=== PATIENT | male | born 1950 | race Caucasian/White ===

== ENCOUNTER 2020-08-04 17:41 | Outpatient (REF) | payer OTHER, SELFPAY ==
[2020-08-04 14:15] LABS: Anion Gap 8.3 mmol/L (3-11); BUN 16 mg/dL (7-18); CO2 29.7 mmol/L (21.0-32.0); CREATININE 0.9 mg/dL (0.70-1.30); Calcium 9.2 mg/dL (8.5-10.1); Calculated LDL 100 mg/dL (<100); Chloride 102 mmol/L (98-107); Cholesterol 179 mg/dL (<200); Glucose 106 mg/dL (74-106); HDL Cholesterol 46 mg/dL (40-60); Potassium 4.5 mmol/L (3.5-5.1); Sodium 140 mmol/L (136-145); Triglyceride 166 mg/dL (<150)
[2020-08-04 21:34] LABS: PSA, Screening 0.3 ng/mL (0.0-4.5)
== END 2020-08-04 17:42 | disposition home or self-care (01) ==
LOC: LBN 17:41
PROVIDERS: PCP Internal Medicine; Visit Provider Internal Medicine
DX: I10 Essential (primary) hypertension (principal); E78.5 Hyperlipidemia, unspecified; Z12.5 Encounter for screening for malignant neoplasm of prostate
CPT/HCPCS: 80048; 80061; 84153

== ENCOUNTER 2020-09-29 10:15 | Outpatient (REF) | payer OTHER, SELFPAY ==
[2020-10-02 10:29] LABS: Lyme Ab w Rflx to Lyme Confirm Negative (Negative)
[2020-10-03 18:41] LABS: Anaplasma phagocytophilum Negative (Negative); B. miyamotoi PCR Negative (Negative); Babesia divergens/MO-1 Negative (Negative); Babesia duncani Negative (Negative); Babesia microti Negative (Negative); Ehrlichia chaffeensis Negative (Negative); Ehrlichia ewingii/canis Negative (Negative); Ehrlichia muris eauclairensis Negative (Negative)
== END 2020-09-29 10:16 | disposition home or self-care (01) ==
LOC: NCHCN 10:15
PROVIDERS: PCP Internal Medicine; Visit Provider Internal Medicine
DX: M25.50 Pain in unspecified joint (principal)
CPT/HCPCS: 87798; 86618

== ENCOUNTER → 2021-03-01 10:42 | Outpatient (BNVA) | payer MEDICARE, SELFPAY | PROVIDERS: PCP Internal Medicine; Referring Provider Internal Medicine; Visit Provider Physical Therapy Assistant | DX: Z12.11 Encounter for screening for malignant neoplasm of colon (principal); Z80.0 Family history of malignant neoplasm of digestive organs ==

== ENCOUNTER 2021-03-02 01:00 | Outpatient (CLI) | payer MEDICARE, SELFPAY ==
[2021-03-02 11:04] LABS: Source Nasal/Nares
[2021-03-02 22:07] LABS: COVID-19 PCR Negative (Negative)
== END 2021-03-02 01:01 | disposition home or self-care (01) ==
LOC: LBO 01:00
PROVIDERS: PCP Internal Medicine; Visit Provider Surgery
DX: Z20.822 Contact with and (suspected) exposure to COVID-19 (principal); Z01.818 Encounter for other preprocedural examination
CPT/HCPCS: 87635

== ENCOUNTER 2021-03-05 10:31 | Day surgery (SDC) | payer MEDICARE, SELFPAY ==
--- NOTE | 2021-03-05 06:40 | W.ANESPRE ---
General Info Date of Service Date Performed: 03/05/21 Height: 5 ft 10 in Weight: 101.151 kg Body Mass Index (BMI): 32.0 Surgical Procedure: Operation Date: 03/05/21 11:20 Proposed Procedures Side Surgeon p Colonoscopy Isabel Cedeño MD Meds Allergies and Home Medications Allergies Allergy/AdvReac Type Severity Reaction Status Date / Time No Known Allergies Allergy Verified 03/05/21 10:58 Home Medication Medication Instructions Recorded acetaminophen 650 mg 650 mg PO Q12H 10/13/20 tablet,extended release lisinopril 20 mg tablet 20 mg PO DAILY 10/13/20 sildenafil 100 mg tablet 100 mg PO DAILY PRN 10/13/20 sumatriptan succinate 50 mg tablet 50 mg PO ONCE 10/13/20 bisacodyl 5 mg tablet,delayed 5 mg PO ONCE #4 tab 03/01/21 release polyethylene glycol 3350 17 17 g PO ONCE #238 g 03/01/21 gram/dose oral powder Devil's Claw 03/02/21 Tumeric With Black Pepper 03/02/21 Current Visit Medications: Current Medications Generic Name Dose Route Start Last Admin Trade Name Symone PRN Reason Stop Dose Admin Ringer's Solution 1,000 mls @ 80 mls/hr 03/05/21 06:00 IV 04/01/21 23:59 INFUSION LEONARD IV Miscellaneous Supplies 1 each 03/05/21 06:00 Iv Access IV 04/01/21 23:59 DIRECTED LEONARD Sodium Chloride 0 ml 03/05/21 06:00 Normal Saline Flush 10 Ml Syr IV 04/01/21 23:59 PRN PRN Sodium Chloride 0 ml 03/05/21 06:00 Normal Saline 10 Ml Vial IJ 04/01/21 23:59 DIRECTED PRN Sterile Water 0 ml 03/05/21 06:00 Water,Injection,Sterile 10 Ml Vial IJ 04/01/21 23:59 DIRECTED PRN PFSH Active Problems Active Problems: Problem Status Onset Code Screening for colon cancer Z12.11 Medical History Medical History Arthritis Bilateral knee pain Caregiver stress Erectile dysfunction Hyperlipidemia Hypertension Lactose intolerance Migraine Obesity Smoker Vitiligo Medical History Comments:: Pt. states If I get over done, I have had arrythmias Surgical History Surgical History (Updated 03/05/21 @ 11:06 by Isa Aldridge) History of carpal tunnel release bilateral History of tonsillectomy and adenoidectomy pt. reports his palate and uvula were modified for sleep apnea History of uvulectomy Hx of cholecystectomy Hx of colonoscopy Tobacco Smoking/Tobacco Use Status: Former Tobacco Use Alcohol Alcohol Intake: current Alcohol intake frequency: 0-2 drinks per day Alcohol type: wine and hard liquor Substance Use Substance use: Daily Substance use type: marijuana Details: He consumes 2mL of THC butter nightly for sleep and uses THC salve topically for joint pain. He smokes CBD hemp daily. Vital Signs and Lab Results Vital Signs Most Recent Vital Signs in EMR: Temp Pulse Resp BP Pulse Ox 36.7 C 78 18 133/82 97 03/05/21 10:54 03/05/21 10:54 03/05/21 10:54 03/05/21 10:54 03/05/21 10:54 Lab Results Blood Type / Crossmatch: No Data to Display Complete Blood Count: No Data to Display Complete Metabolic Panel: No Data to Display Liver Function Panel: No Data to Display Coagulation Panel: No Data to Display Cardiac Panel: No Data to Display Arterial Blood Gas: No Data to Display Venous Blood Gas: No Data to Display Pancreas Panel: No Data to Display Thyroid Panel: No Data to Display Infectious Disease: Coronavirus (COVID-19)(PCR) Negative (Negative) 03/02/21 10:17 03/02/21 Coronavirus 2019 Source Nasal/Nares 03/02/21 10:17 03/02/21 Blood Cultures: No Data to Display Toxicology Panel: No Data to Display Anesthesia Assessment and Plan Anesthesia History Personal History: Other Family History: No Family History of Anesthesia Complications Exercise Tolerance Exercise Tolerance: Metabolic Equivalents<4 Cardiac & Pulmonary Exam Cardiac Exam: Normal S1/S2 Heart Sounds Pulmonary Exam: Clear Bilateral Breath Sounds Implantable Cardiac Device Does patient have a Pacemaker or an ICD?: No Airway Exam Known Difficult Airway: No Mallampati Class: 2 Mouth Opening: Normal (> 3cm) Thyromental Distance: Greater than 3 cm Neck Range of Motion: Full ROM Neck Circumference: Normal Teeth Condition: Removable Dentures/Plates Lower ASA Classification ASA Score: ASA 2 Emergency Case?: No NPO Status NPO Status: NPO Clears >2 hours, Solids >8 hours Anesthesia Plan Resuscitation Status: Full Code Anesthesia Technique: General Anesthesia Airway Planned: Natural Airway Monitors Used: Standard Monitors and Arterial Line Preoperative Comments:: 70 yo male for screening colo. sig PMHx: HTN (lisinopril).
--- NOTE | 2021-03-05 06:47 | COLE_ITS ---
Colonoscopy Report Date of procedure: 03/05/21 Pre-op diagnosis general: Screening colonoscopy and family history of colon canc er Post-op diagnosis procedure note: same Procedure: Colonoscopy Surgeon: Isabel Cedeño Anesthesia Type: General:No Airway (Bo José CRNA) Estimated blood loss (mL): 0 Pathology: none sent Complications: None Disposition: same day Indications: The patient is here for Colonoscopy pre-op. His last screening was in 2009, which was unremarkable. He reports a family history of colon cancer in his mother at the age of 34 and his maternal uncle at the age of 76. He has not had any bowel habit changes. -Discussed colonoscopy bowel prep as well as the procedure. Discussed possible complications of the procedure to include bleeding, pain, perforation, missed small lesion/polyp, sore throat, aspiration and adverse reaction to the medications. Questions were answered to patient?s satisfaction. No guarantees were implied or given. Prep: Miralax/Dulcolax Procedure Start Time: 12:03 Procedure End Time: 12:43 Retraction Time: 26 minutes Findings: No polyps seen but prep was suboptimal !.5 Lof saline used to try and wash all the debris out of the intestine Procedure Description: After informed consent was obtained the patient was taken to the procedure room and placed in a left decubitous position. Monitors were applied and a time out was done. The patients name, date of , procedure, allergies to medications and metal in their body was reviewed. The patient was then sedated. Once sedated and comfortable a rectal exam was done. External exam was normal. Internal exam revealed a normal sphincter tone and no palpable masses. The prostate felt smooth and slightly enlarged. The scope was then introduced and retro-flexed. No internal hemorrhoids, polyps or masses were identified on retro-flexion. The scope was then advanced to the cecum without difficulty. The ileocecal vlave and appendiceal orifice were identified. The prep was sub-optimal. The scope was then slowly retracted over 26 minutes back into the rectum. 1.5 L of NS were used to try and remove as much debris from the mucosa. No polyps were identified. There was no diverticulosis noted. The scope was removed and the patient was woken up and taken back to Same day surgery in stable condition. Small polyps could easily have been missed due to the sub-optimal prep. The patient tolerated the procedure well and there were no immediate complications. Follow up: The patient should follow up in 1 year unless they develop changes in bowel habits or other new gastrointestinal complaints.
--- NOTE | 2021-03-05 06:48 | W.PM.DSUDISC ---
Discharge Plan Disposition Patient Disposition: HOME Condition: Good Discharge Details Reason For Visit: Colonoscopy Attending Provider: Isabel Cedeño Primary Care Provider: Mandi Hernandez Home Meds and New Rx's Prescriptions: Continued acetaminophen [Tylenol Arthritis Pain] 650 mg tablet extended release 650 mg PO Q12H RF: 0 sildenafil [Viagra] 100 mg tablet 100 mg PO DAILY PRNRF: 0 lisinopril 20 mg tablet 20 mg PO DAILY RF: 0 sumatriptan succinate [Imitrex] 50 mg tablet 50 mg PO ONCE RF: 0 Devil's Claw RF: 0 Tumeric With Black Pepper RF: 0 Discontinued bisacodyl [Dulcolax (bisacodyl)] 5 mg tablet,delayed release (DR/EC) 5 mg PO ONCE Qty: 4 RF: 0 polyethylene glycol 3350 17 gram/dose powder 17 g PO ONCE Qty: 238 RF: 0 Discharge Instructions Additional Instructions: Findings: no polyps, but the prep was suboptimal Follow up: recommend repeat colonoscopy in 1 year Please call if you develop: fevers >101.5 Nausea or Vomiting Abdominal pain that is not transient Rectal bleeding that is more then a tbsp A hard abdomen and inability to pass gas DAY SURGERY UNIT POST ENDOSCOPY INSTRUCTIONS Instructions for everyone who is given Anesthesia: For your safety, please do the following for the next 24 Hours: a. Do not drive or operate dangerous equipment b. Do not drink alcohol beverages or use any recreational drugs for the first 24 hours or while taking pain medications. The medications in your body may have a reaction that can be dangerous. c. Do not make any important decisions or sign any important papers 1. Generally there are no restrictions on your activity after a day or so has gone by, but you may feel a bit fatigued for a few days. 2. After you arrive home you may have a light meal and return to a normal diet as you can tolerate it without feeling sick to your stomach. 3. After surgery, you may feel pain or discomfort. This should be only transient, but if it persists please contact your doctor. 4. If there are any questions regarding the findings of your procedure, please feel free to contact your doctor. 6. If you are unable to contact your doctor with a problem, contact the hospital at [phone]. 7. Continue all your regular medications unless directed otherwise. I understand the above instructions and have no questions. Signature of Patient or Responsible Adult Escort Date/Time Name of Responsible Adult Escort Signature of Nurse Date/Time Activity:: Activity as Tolerated Diet:: As Tolerated Discharge Orders Discharge Orders: Discharge Order (Routine); Ordered 03/05/21 Ordered By: Isabel Cedeño
[2021-03-05 10:54] VITALS: BP 133/82; PULSE 78; RESP 18; TEMP 36.7; O2SAT 97
[2021-03-05] MEDS: Lactated Ringers 1,000 ML 80 ML IV (11:15)
[2021-03-05 11:19] VITALS: BMI 32.0
[2021-03-05 12:50] VITALS: BP 129/88; PULSE 72; RESP 16; TEMP 35.4; O2SAT 96
--- NOTE | 2021-03-05 13:29 | W.ANESPOSTOP ---
Postoperative Evaluation Date, Time and Location Date Performed: 03/05/21 Time Performed: 12:50 Patient Location: Day Surgery Unit Vital Signs Most Recent Imported Vital Signs: Most Recent Vital Signs Temp Pulse Resp BP Pulse Ox 35.4 C L 72 16 129/88 96 03/05/21 12:50 03/05/21 12:50 03/05/21 12:50 03/05/21 12:50 03/05/21 12:50 Pain Score Most Recent Pain Score: Most Recent Pain Score Pain Level 0 03/05/21 12:50 Assessment Mental Status: Awake (Alert & Oriented to Patient Baseline) Airway and Respiratory Function: Patent airway with normal (patient baseline) respiratory exam Cardiovascular Function: Hemodynamically Stable Hydration Status: Adequately Hydrated Nausea & Vomiting: No Nausea or Vomiting Pain: Pt. Denies Any Pain Peripheral Nerve Block: Patient did not receive a nerve block
[2021-03-05 13:35] VITALS: BP 182/99; PULSE 68; RESP 18; TEMP 36.4; O2SAT 98
== END 2021-03-05 14:10 | disposition home or self-care (01) ==
LOC: SUR 10:32
PROVIDERS: PCP Internal Medicine; Visit Provider Surgery
PROC: 0DJD8ZZ Inspection of Lower Intestinal Tract, Via Natural or Artificial Opening Endoscopic (ICD-10-PCS; CPT 45378; principal; 2021-03-05 11:15)
DX: Z12.11 Encounter for screening for malignant neoplasm of colon (principal); Z80.0 Family history of malignant neoplasm of digestive organs; I10 Essential (primary) hypertension
CPT/HCPCS: G0105; J2001; J2704

== ENCOUNTER 2021-08-01 08:13 | Outpatient (REF) | payer MEDICARE, SELFPAY ==
[2021-08-01 15:45] LABS: ALT 74 U/L (16-63); AST 51 U/L (15-37); Albumin 3.8 g/dL (3.4-5.0); Alkaline Phosphatase 51 U/L (46-116); Anion Gap 8.4 mmol/L (3-11); BUN 14 mg/dL (7-18); Bilirubin, Total 0.6 mg/dL (0.2-1.0); CO2 27.6 mmol/L (21.0-32.0); CREATININE 0.8 mg/dL (0.70-1.30); Calcium 8.4 mg/dL (8.5-10.1); Calculated LDL 101 mg/dL (<100); Chloride 105 mmol/L (98-107); Cholesterol 192 mg/dL (<200); Glucose 112 mg/dL (74-106); HDL Cholesterol 46 mg/dL (40-60); Potassium 4.3 mmol/L (3.5-5.1); Sodium 141 mmol/L (136-145); Total Protein 6.7 g/dL (6.4-8.2); Triglyceride 228 mg/dL (<150)
== END 2021-08-01 08:14 | disposition home or self-care (01) ==
LOC: NCHCN 08:13
PROVIDERS: PCP Internal Medicine; Visit Provider Internal Medicine
DX: E78.5 Hyperlipidemia, unspecified (principal); I10 Essential (primary) hypertension
CPT/HCPCS: 80053; 80061

== ENCOUNTER 2022-08-05 16:31 | Outpatient (REF) | payer MEDICARE, SELFPAY ==
[2022-08-05 17:45] LABS: ALT 67 U/L (16-63); AST 47 U/L (15-37); Albumin 3.8 g/dL (3.4-5.0); Alkaline Phosphatase 54 U/L (46-116); Anion Gap 1.9 mmol/L (3-11); BUN 17 mg/dL (7-18); Bilirubin, Total 0.6 mg/dL (0.2-1.0); CO2 31.1 mmol/L (21.0-32.0); Calcium 9.5 mg/dL (8.5-10.1); Calculated LDL 111 mg/dL (<100); Chloride 101 mmol/L (98-107); Cholesterol 190 mg/dL (<200); Estimated GFR 81.47 (mL/min/1.73m2); Glucose 118 mg/dL (74-106); HDL Cholesterol 45 mg/dL (40-60); Potassium 4.3 mmol/L (3.5-5.1); Sodium 134 mmol/L (136-145); Total Protein 7.6 g/dL (6.4-8.2); Triglyceride 174 mg/dL (<150)
== END 2022-08-05 16:32 | disposition home or self-care (01) ==
LOC: NCHCN 16:31
PROVIDERS: PCP Internal Medicine; Visit Provider Internal Medicine
DX: E78.5 Hyperlipidemia, unspecified (principal); I10 Essential (primary) hypertension; K76.0 Fatty (change of) liver, not elsewhere classified
CPT/HCPCS: 80053; 80061

== ENCOUNTER 2022-09-27 15:17 | Outpatient (REF) | payer MEDICARE, SELFPAY ==
[2022-09-27 14:17] LABS: HCT 45.3 % (40.0-50.0); MCH 29.2 pg (27.0-33.0); MCHC 33.1 % (32.0-36.0); MCV 88 fL (80-95); MPV 9.5 fL (8.0-11.0); Platelet Count 305 10^3/uL (130-400); RBC 5.13 10^6/uL (4.36-5.78); RDW 12.7 % (11.8-14.1); RDW-SD 41.1 fL; WBC 9.59 10^3/uL (4.4-10.8)
[2022-09-27 14:41] LABS: TSH 0.87 uIU/mL (0.36-3.74)
[2022-09-30 12:31] LABS: Hepatitis C Ab w Rflx HCV PCR Reactive (Negative)
[2022-10-02 11:45] LABS: HCV RNA Qualitative Undetected (Undetected)
== END 2022-09-27 15:18 | disposition home or self-care (01) ==
LOC: NCHCN 15:17
PROVIDERS: PCP Internal Medicine; Visit Provider Internal Medicine
DX: R63.5 Abnormal weight gain (principal)
CPT/HCPCS: 85027; 86803; 87522; 84443

== ENCOUNTER → 2022-11-26 01:09 | Outpatient (CLI) | payer MEDICARE, SELFPAY ==
--- NOTE | 2022-11-26 | DI.US_ITS ---
Exam(s) US ABDOMEN LIMITED EXAM: US ABDOMEN LIMITED CLINICAL HISTORY: FATTY LIVER, K76.0 TECHNIQUE: Ultrasound abdomen performed using standard protocol. COMPARISON: No exams were available for comparison FINDINGS: There is no ascites evident. LIVER: Liver is hyperechoic indicating steatosis. There are no discrete focal hepatic lesions identi fied. GALLBLADDER/BILIARY: The gallbladder surgically absent. The common hepatic duct ismildly dilated, measuring 7-8mm at the level of greg hepatis. This is mos t probably related to a combination of post cholecystectomy status and age. PANCREAS: There is no evidence of pancreatic mass nor dilatation of the pancreatic duct. RIGHT KIDNEY:No evidence of solid mass, calculus, nor hydronephrosis. No cortical cysts evident. IMPRESSION: 1. Gallbladder surgically absent. Common hepatic duct measures 7-8 mm, slightly prominent but most probably related to post cholecystectomy status. 2. Hepatic steatosis but no discrete focal hepatic lesions. 3. No other right upper quadrant ultrasound findings and there is no ascites evident. DATA REPOSITORY:
== END ==
PROVIDERS: PCP Internal Medicine; Visit Provider Internal Medicine
DX: K76.0 Fatty (change of) liver, not elsewhere classified (principal); Z90.49 Acquired absence of other specified parts of digestive tract
CPT/HCPCS: 76705

== ENCOUNTER 2023-03-19 15:13 | Outpatient (REF) | payer MEDICARE, SELFPAY ==
[2023-03-19 15:02] LABS: ALT 41 U/L (16-63); AST 28 U/L (15-37); Albumin 3.8 g/dL (3.4-5.0); Alkaline Phosphatase 49 U/L (46-116); BUN 12 mg/dL (7-18); Bilirubin, Total 0.6 mg/dL (0.2-1.0); CREATININE 0.9 mg/dL (0.70-1.30); Calcium 9.3 mg/dL (8.5-10.1); Calculated LDL 63 mg/dL (<100); Chloride 102 mmol/L (98-107); Cholesterol 140 mg/dL (<200); Estimated GFR 91.88 (mL/min/1.73m2); Glucose 122 mg/dL (74-106); HDL Cholesterol 44 mg/dL (40-60); Potassium 4.1 mmol/L (3.5-5.1); Sodium 139 mmol/L (136-145); Total Protein 7.3 g/dL (6.4-8.2); Triglyceride 166 mg/dL (<150)
--- OUTSIDE RECORDS SUMMARY | 2023-03-19 15:14 | XMS_ITS | CCD ---
Author Name Unknown Address [address] [place] [address] [id number] Organization Unknown Address [address] [place] [address] [id number] Care Team Providers Care Touch Up Painter Hand Name Role Phone PRIMO LEDESMA Attending Physician [phone] PRIMO LEDESMA Rounding (Secondary) Physicia n [phone] Vital Signs Unknown or Not Available. Allergies Unknown or Not Available. Procedures Unknown or Not Available. History of Immunizations Unknown or Not Available. Problems Unknown or Not Available. Results Unknown or Not Available. Active Medications Unknown or Not Available. Medications Administered During Visit Unknown or Not Available. Encounters Encounter Diagnosis Diagnosis Code Start Date Idiopathic osteoarthritis [id number] 2022 Social History Smoking Status Code Start Date End Date Current every day smoker [id number] Patient Decision Aids Unknown or Not Available. Discharge Instructions You were admitted to [facility] on 07/03/2022 00:00 with a principal diagnosis of Primary osteoarthritis, right ankle and foot You were discharged from [facility] on 07/03/2022 00:00 Should you have any questions prior to discharge, please contact a member of your healthcare team. If you have left the hospital and have any questions, please contact your primary care physician. Chief Complaint and Reason For Visit Unknown or Not Available. Function Status Unknown or Not Available. Plan of Care Unknown or Not Available. Referral/Transition of Care Unknown or Not Available.
--- OUTSIDE RECORDS SUMMARY | 2023-03-19 15:14 | XMS_ITS | CCD ---
Author Name Unknown Address [address] [place] [address] [phone] Organization Unknown Address [address] [place] [address] [phone] Care Team Providers Care Petroleum Engineering Teacher Name Role Phone HARMONY ERICKSON Attending Physician [phone] HARMONY ERICKSON Rounding (Secondary) Physic sawyer [phone] Vital Signs Unknown or Not Available. Allergies Unknown or Not Available. Procedures Unknown or Not Available. History of Immunizations Unknown or Not Available. Problems Unknown or Not Available. Results Unknown or Not Available. Active Medications Unknown or Not Available. Medications Administered During Visit Unknown or Not Available. Encounters Encounter Diagnosis Diagnosis Code Start Date Idiopathic osteoarthritis [id number] 2022 Social History Smoking Status Code Start Date End Date Current every day smoker [id number] Patient Decision Aids Unknown or Not Available. Discharge Instructions You were admitted to [facility] on 12/24/2022 00:00 with a principal diagnosis of Bilateral primary osteoarthritis of knee You were discharged from [facility] on 12/24/2022 09:55 Should you have any questions prior to [...]
--- OUTSIDE RECORDS SUMMARY | 2023-03-19 15:15 | XMS_ITS | CCD ---
Author Name Unknown Address [address] [place] [address] [id number] Organization Unknown Address [address] [place] [address] [phone] Care Team Providers Care Cell Repairer Name Role Phone SAM MARROQUIN Attending Physician [phone] SAM MARROQUIN Rounding (Secondary) Physician [phone] Vital Signs Unknown or Not Available. Allergies Unknown or Not Available. Procedures Unknown or Not Available. History of Immunizations Unknown or Not Available. Problems Unknown or Not Available. Results Unknown or Not Available. Active Medications Unknown or Not Available. Medications Administered During Visit Unknown or Not Available. Encounters Encounter Diagnosis Diagnosis Code Start Date Idiopathic osteoarthritis [id number] 2022 Social History Smoking Status Code Start Date End Date Current every day smoker [id number] Patient Decision Aids Unknown or Not Available. Discharge Instructions You were admitted to [facility] on 04/23/2022 00:00 with a principal diagnosis of Bilateral primary osteoarthritis of knee You were discharged from [facility] on 04/23/2022 00:00 Should you have any questions prior [...]
--- OUTSIDE RECORDS SUMMARY | 2023-03-19 15:15 | XMS_ITS | CCD ---
Author Name Unknown Address [address] [place] [address] [phone] Organization Unknown Address [address] [place] [address] [phone] Care Team Providers Care Manager Pet Name Role Phone SAM MARROQUIN Attending Physician [phone] SAM MARROQUIN Rounding (Secondary) Physician [phone] Vital Signs Unknown or Not Available. Allergies Unknown or Not Available. Procedures Unknown or Not Available. History of Immunizations Unknown or Not Available. Problems Unknown or Not Available. Results Unknown or Not Available. Active Medications Unknown or Not Available. Medications Administered During Visit Unknown or Not Available. Encounters Encounter Diagnosis Diagnosis Code Start Date Idiopathic osteoarthritis 913308271 2022 Social History Smoking Status Code Start Date End Date Current every day smoker [id number] Patient Decision Aids Unknown or Not Available. Discharge Instructions You were admitted to [facility] on 04/30/2022 00:00 with a principal diagnosis of Bilateral primary osteoarthritis of knee You were discharged from [facility] on 04/30/2022 00:00 Should you have any questions prior [...]
--- OUTSIDE RECORDS SUMMARY | 2023-03-19 15:15 | XMS_ITS | CCD ---
Author Name Unknown Address [address] [place] [address] [id number] Organization Unknown Address [address] [place] [address] [phone] Care Team Providers Care Director Post Name Role Phone DONNA JOHN Attending Physician [phone] DONNA JOHN Rounding (Secondary) Physician [phone] Vital Signs Unknown or Not Available. Allergies Unknown or Not Available. Procedures Unknown or Not Available. History of Immunizations Unknown or Not Available. Problems Unknown or Not Available. Results Unknown or Not Available. Active Medications Unknown or Not Available. Medications Administered During Visit Unknown or Not Available. Encounters Encounter Diagnosis Diagnosis Code Start Date Adverse reaction to drug [id number] 023 Social History Smoking Status Code Start Date End Date Current every day smoker [id number] Patient Decision Aids Unknown or Not Available. Discharge Instructions You were admitted to on 02/06/2023 00:00 with a principal diagnosis of Adverse reaction to drug You were discharged from on 02/06/2023 09:32 Should you have any questions prior to [...]
--- OUTSIDE RECORDS SUMMARY | 2023-03-19 15:15 | XMS_ITS | CCD ---
Author Name Unknown Address [address] [place] [address] [phone] Organization Unknown Address [address] [place] [address] [phone] Care Team Providers Care Sack Keeper Name Role Phone DONNA JOHN Attending Physician [phone] DONNA JOHN Rounding (Secondary) Physician [phone] Vital Signs Unknown or Not Available. Allergies Unknown or Not Available. Procedures Unknown or Not Available. History of Immunizations Unknown or Not Available. Problems Unknown or Not Available. Results Unknown or Not Available. Active Medications Unknown or Not Available. Medications Administered During Visit Unknown or Not Available. Encounters Encounter Diagnosis Diagnosis Code Start Date Idiopathic osteoarthritis [id number] 2022 Social History Smoking Status Code Start Date End Date Current every day smoker [id number] Patient Decision Aids Unknown or Not Available. Discharge Instructions You were admitted to [facility] on 01/16/2023 00:00 with a principal diagnosis of Bilateral primary osteoarthritis of knee You were discharged from [facility] on 01/16/2023 11:10 Should you have any questions prior to [...]
== END 2023-03-19 15:14 | disposition home or self-care (01) ==
LOC: NCHCN 15:13
PROVIDERS: PCP Internal Medicine; Visit Provider Internal Medicine
DX: E78.5 Hyperlipidemia, unspecified (principal)
CPT/HCPCS: 80053; 80061

== ENCOUNTER 2024-02-27 09:10 | Outpatient (REF) | payer MEDICARE, SELFPAY ==
[2024-02-27 14:51] LABS: HCT 46.5 % (40.0-50.0); MCH 29.9 pg (27.0-33.0); MCHC 32.3 % (32.0-36.0); MCV 93 fL (80-95); MPV 9.5 fL (8.0-11.0); Platelet Count 312 10^3/uL (130-400); RBC 5.02 10^6/uL (4.36-5.78); RDW 13.1 % (11.8-14.1); RDW-SD 44.3 fL; WBC 9.46 10^3/uL (4.4-10.8)
[2024-02-27 15:04] LABS: Hemoglobin A1C 6.4 % (<5.7)
[2024-02-27 15:13] LABS: ALT 35 U/L (16-63); AST 33 U/L (15-37); Albumin 4.1 g/dL (3.4-5.0); Alkaline Phosphatase 64 U/L (46-116); BUN 15 mg/dL (7-18); Bilirubin, Total 0.53 mg/dL (0.2-1.0); Calcium 9.6 mg/dL (8.5-10.1); Chloride 102 mmol/L (98-107); Estimated GFR 80.47 (mL/min/1.73m2); Glucose 129 mg/dL (74-106); Potassium 4.9 mmol/L (3.5-5.1); Sodium 140 mmol/L (136-145); Total Protein 7.9 g/dL (6.4-8.2)
== END 2024-02-27 09:11 | disposition home or self-care (01) ==
LOC: NCHCN 09:10
PROVIDERS: PCP Internal Medicine; Visit Provider Internal Medicine
DX: R73.03 Prediabetes (principal); K76.0 Fatty (change of) liver, not elsewhere classified
CPT/HCPCS: 80053; 85027; 83036

== ENCOUNTER 2024-06-27 12:55 | Emergency (ER) | payer MEDICARE, SELFPAY ==
[2024-06-27 13:01] VITALS: BP 143/86; PULSE 81; RESP 14; TEMP 36.7; O2SAT 96
--- NOTE | 2024-06-27 13:30 | DI.CT_ITS ---
Exam(s) CT CHEST/ABD/PEL W EXAM: CT CHEST/ABD/PEL W CLINICAL HISTORY: Right flank pain post fall TECHNIQUE: Imaging Protocol: Axial computed tomography images with coronal and sagittal reformatted images were created and reviewed. Lung Computer Aided Detection (CAD) was utilized. CONTRAST MATERIAL: Intravenous: Omnipaque 350 contrast volume:100 mL Oral: No COMPARISON: No exams were available for comparison FINDINGS: CHEST: Tracheobronchial tree: Patent where visualized. No evidence of bronchiectasis. Pulmonary parenchyma: No consolidation or dominant measurable mass. No architectural distortion. Visualized thyroid gland: Unremarkable. Mediastinum and Brittany: No dominant adenopathy or fluid collection. The esophagus is unremarkable. Pleura: No effusion or pneumothorax. Heart: The heart is not dilated. Coronary artery calcifications are present. No pericardial effusion . Pulmonary arteries: No large central pulmonary embolism is seen. Aorta: Thoracic aorta non-dilated. Atherosclerotic calcification is present. There is no evidence of a dissection. Lymph nodes: Within normal limits. Soft tissues: Unremarkable. Bones:Within normal limits for the patient's age. There are mildly displaced fractures of the data capture specialist ior aspects of the right 9th, 10th and 11th ribs. There also nondisplaced fractures involving the ri ght transverse processes of L1, L2 and L3. ABDOMEN: Liver: There is decreased attenuation of the liver suggesting fatty infiltration. There is a tiny hy podensity in the left lobe. This likely reflects a small cyst. No evidence of a hepatic laceration. Portal, Superior Mesenteric, and Splenic Veins: Unremarkable. Gallbladder and Biliary Tract: Status post cholecystectomy. No biliary ductal dilatation. Pancreas: Normal density, no abnormal calcifications or inflammatory process. Spleen: Normal. Adrenals: No masses seen. Kidneys: Normal size, contour and axis. No radiodense stones or obstructive uropathy. There are few t iny hypodensities in the right kidney. They are too small for further characterization but likely re flect small cysts. No follow-up is recommended. Abdominal Aorta: Abdominal portion non-dilated. Atherosclerotic calcification is present. Bowel: No obstruction or bowel wall thickening. Appendix is unremarkable. The stomach is incompletely distended limiting evaluation. Peritoneal Cavity: No ascites, collection or mesenteric inflammatory response. No free air. Lymph Nodes: Within normal limits. Bones: Within normal limits for the patient's age. Soft Tissues: Unremarkable. PELVIS: Bladder: Symmetric distention, no gross wall thickening. Reproductive Organs: Prostate gland is mildly enlarged. Prostatic calcifications are present. Lymph Nodes: Within normal limits. Bones: Within normal limits. IMPRESSION: 1. No acute pulmonary process. 2. Minimally displaced fractures involving the posterior aspects of the right 9th, 10th and 11th ribs . 3. Nondisplaced fractures involving the right transverse processes of L1, L2 and L3. 4. No acute abdominal or pelvic process. RADIATION DOSE DELIVERED: 614.91mGy.cm Total DLP DATA REPOSITORY: All CT scans at this facility are submitted to the National Radiology Data Registry (NRDR) Dose Index Registry (DIR) with the [employer] (ACR). RADIATION OPTIMIZATION: All CT scans at this facility use at least one of these dose optimization te chniques: automated exposure control; mA and/or kV adjustment per patient size (includes targeted exa ms where dose is matched to clinical indication); or iterative reconstruction.
[2024-06-27 13:51] LABS: Abs Immature Grans 0.05 10^3/uL (0.0-0.06); Absolute Basophil Count 0.05 10^3/uL (0.0-0.2); Absolute Eosinophil Count 0.52 10^3/uL (0.0-0.7); Absolute Lymphocyte Count 2.77 10^3/uL (1.2-3.4); Absolute Neutrophil Count 6.14 10^3/uL (1.2-6.7); Basophils % 0.5 %; HCT 48.3 % (40.0-50.0); HGB 15.7 g/dL (13.5-17.5); Immature Grans % 0.5 %; Lymphocytes % 26.6 %; MCH 29.9 pg (27.0-33.0); MCHC 32.5 % (32.0-36.0); MCV 92 fL (80-95); MPV 8.9 fL (8.0-11.0); Monocytes % 8.6 %; Neutrophils % 58.8 %; Platelet Count 301 10^3/uL (130-400); RBC 5.25 10^6/uL (4.36-5.78); RDW 12.7 % (11.8-14.1); RDW-SD 42.7 fL; WBC 10.43 10^3/uL (4.4-10.8)
[2024-06-27] MEDS: Lidocaine 5% Patch 1 PATCH TP (13:51)
[2024-06-27] MEDS: traMADol 50 MG TAB PO (13:51)
[2024-06-27 14:09] LABS: ALT 35 U/L (16-63); AST 20 U/L (15-37); Alkaline Phosphatase 79 U/L (46-116); Anion Gap 6.5 mmol/L (3-11); BUN 16 mg/dL (7-18); Bilirubin, Total 0.9 mg/dL (0.2-1.0); CO2 29.5 mmol/L (21.0-32.0); CREATININE 0.9 mg/dL (0.70-1.30); Calcium 9.6 mg/dL (8.5-10.1); Chloride 100 mmol/L (98-107); Estimated GFR 91.31 (mL/min/1.73m2); Glucose 111 mg/dL (74-106); Lipase 24 U/L (<78); Potassium 4.5 mmol/L (3.5-5.1); Sodium 136 mmol/L (136-145); Total Protein 7.8 g/dL (6.4-8.2)
[2024-06-27] MEDS: Omnipaque 350 MG/ML 100 ML BTL IJ (14:14)
[2024-06-27] MEDS: Normal Saline - Diluent 50 ML VIAL IJ (14:18)
--- NOTE | 2024-06-27 15:43 | ED.GENADUL_ITS ---
Discharge Plan Disposition Patient Disposition: Home Condition: Stable Discharge Details Clinical Impression: Lumbar transverse process fracture, Multiple fractures of ribs Primary Care Provider: Mandi Hernandez ED Provider: Annita Cruz Home Meds and New Rx's Prescriptions: New morphine 15 mg tablet 15 mg PO Q8H PRNQty: 15 0RF Continued acetaminophen [Tylenol Arthritis Pain] 650 mg tablet extended release 650 mg PO Q12H sildenafil [Viagra] 100 mg tablet 100 mg PO DAILY PRN Rx Instructions: administer 30 minutes to 4 hours before activity lisinopril 20 mg tablet 20 mg PO DAILY sumatriptan succinate [Imitrex] 50 mg tablet 50 mg PO ONCE atorvastatin 20 mg tablet 20 mg PO QHS Discharge Instructions Instructions: Blunt Chest Trauma (DC), Rib Fracture or Bruised Rib ED Additional Instructions: take tylenol 500 mg every 6 hours while awake use spirometer to fully inhale and exhale at least 12 times daily to prevent pneumonia take urinal and use at night as needed use walker to assist when standing up and walking as needed you have fractures to your lumbar transverse processes and ribs, this will take time to heal please schedule follow-up with your pcp in 2-3 days for recheck take morphine as needed for pain, do not operate your vehicle or consume alcohol while on this medication morphine can be addictive, please use caution while taking medication Return immediately should you develop fever, chills, shortness of breath, or should any new concerns arise Referrals: Mandi Hernandez [Primary Care Provider] - 3 days HPI General Date/Time Provider Initiated Documentation: 06/27/24 12:56 . HPI Narrative: 73-year-old male with hypertension, hyperlipidemia, presents after a fall on Friday, injuring his right flank. Tripped over a rug, fell backwards, hitting his flank on a stone countertop. Reports a clicking sensation with movement and difficulty transitioning from sitting to standing due to discomfort. No head injury, loss of consciousness, fever, chills, or history of coagulopathy. Related Data Home Medications ?Medication ?Instructions ?Recorded ?Confirmed acetaminophen 650 mg 650 mg PO Q12H 10/13/20 06/27/24 tablet,extended release (Tylenol Arthritis Pain) lisinopril 20 mg tablet 20 mg PO DAILY 10/13/20 06/27/24 sildenafil 100 mg tablet (Viagra) 100 mg PO DAILY PRN 10/13/20 06/27/24 sumatriptan succinate 50 mg tablet 50 mg PO ONCE 10/13/20 06/27/24 (Imitrex) atorvastatin 20 mg tablet 20 mg PO QHS 05/17/24 06/27/24 morphine 15 mg immediate release 15 mg PO Q8H PRN #15 tabs 06/27/24 tablet Previous Rx's ?Medication ?Instructions ?Recorded morphine 15 mg immediate release 15 mg PO Q8H PRN #15 tabs 06/27/24 tablet Allergies Allergy/AdvReac Type Severity Reaction Status Date / Time No Known Allergies Allergy Verified 06/27/24 13:06 General Stated Complaint: Trauma DELFINO: 3 Exam Narrative Exam Narrative: General Appearance: Alert and oriented, appears uncomfortable but in no distress. Vital signs: Within normal limits. HEENT: No head trauma, pupils equal, round, reactive to light and accommodation. Respiratory: Lungs clear to auscultation. Cardiovascular: Cardiac rate and rhythm regular. Gastrointestinal: No anterior abdominal wall tenderness. Back, Musculoskeletal: No cervical spine tenderness, reproducible tenderness over right thorax, no visible trauma. Extremities: Distal pulses intact. Skin: Warm and dry, no rash. Neurological: GCS 15. Other observations: None. Course Vital Signs Vital signs: Vital Signs Temperature 36.7 C 06/27/24 13:01 Pulse 81 06/27/24 13:01 Respiratory Rate 14 06/27/24 13:01 Blood Pressure 143/86 H 06/27/24 13:01 Pulse Oximetry 96 06/27/24 13:01 Temperature 36.7 C 06/27/24 13:01 Temperature Source Oral 06/27/24 13:01 Pulse 81 06/27/24 13:01 Respiratory Rate 14 06/27/24 13:01 Respiratory Effort Normal, Non-Labored 06/27/24 13:55 Respiratory Depth Normal 06/27/24 13:55 Respiratory Pattern Normal 06/27/24 13:55 Blood Pressure 143/86 H 06/27/24 13:01 Blood Pressure Position Sitting 06/27/24 13:01 Pulse Oximetry 96 06/27/24 13:01 Oxygen Delivery Method Room Air 06/27/24 13:01 Oxygen Flow Rate 0 06/27/24 13:01 Pain Level 5 06/27/24 13:51 Lab/Test Results Lab/Test Results: Laboratory Tests Range/Units 06/27/24 13:42 WBC (4.4-10.8) 10^3/uL 10.43 RBC (4.36-5.78) 10^6/uL 5.25 Hgb (13.5-17.5) g/dL 15.7 Hct (40.0-50.0) % 48.3 MCV (80-95) fL 92 MCH (27.0-33.0) pg 29.9 MCHC (32.0-36.0) % 32.5 RDW (11.8-14.1) % 12.7 Plt Count (130-400) 10^3/uL 301 MPV (8.0-11.0) fL 8.9 Immature Gran % % 0.5 Neutrophils % % 58.8 Lymphocytes % % 26.6 Monocytes % % 8.6 Eosinophils % % 5.0 Basophils % % 0.5 Nucleated RBC % (0.0-0.3) % 0.0 Absolute Neutrophils (1.2-6.7) 10^3/uL 6.14 Absolute Lymphocytes (1.2-3.4) 10^3/uL 2.77 Absolute Monocytes (0.1-0.8) 10^3/uL 0.90 H Absolute Eosinophils (0.0-0.7) 10^3/uL 0.52 Absolute Basophils (0.0-0.2) 10^3/uL 0.05 Sodium (136-145) mmol/L 136 Potassium (3.5-5.1) mmol/L 4.5 Chloride (98-107) mmol/L 100 Carbon Dioxide (21.0-32.0) mmol/L 29.5 Anion Gap (3-11) mmol/L 6.5 BUN (7-18) mg/dL 16 Creatinine (0.70-1.30) mg/dL 0.9 Est GFR (CKD-EPI 2020) (mL/min/1.73m2) 91.31 Glucose (74-106) mg/dL 111 H Calcium (8.5-10.1) mg/dL 9.6 Total Bilirubin (0.2-1.0) mg/dL 0.9 AST (15-37) U/L 20 ALT (16-63) U/L 35 Alkaline Phosphatase (46-116) U/L 79 Total Protein (6.4-8.2) g/dL 7.8 Albumin (3.4-5.0) g/dL 4.0 Lipase (<78) U/L 24 Medical Decision Making CBC and CMP show no acute abnormality. CT chest, abdomen, and pelvis: L1, L2, L3 transverse process fractures; minimally displaced fractures of 9th, 10th, and 11th right ribs. No pneumothorax, hemothorax, or kidney trauma. Initial Assessment: 73-year-old male with history of changes to his right eye vision, hypertension, and hyperlipidemia, presents with report of fall on Friday. Tripped over a throat and fell backwards hitting his flank on the corner of a stone countertop. Denies head injury, loss of consciousness, fever, chills, or coagulopathy. Alert and oriented. Reproducible tenderness over right thorax. No visible signs of trauma. Lungs clear to auscultation. Cardiac rate rhythm regular. Distal pulses intact. No sign of head trauma. GCS 15. Pupils equal, round, reactive to light and accommodation. No cervical spine tenderness. No anterior abdominal wall tenderness. Muscle strain. ED Course: - CT chest, abdomen, and pelvis ordered. Shows evidence of L1, L2, L3 transverse process fractures and minimally displaced fractures of 9th, 10th, and 11th right ribs. No pneumothorax or hemothorax. Read by me. - No hypoxia or tachypnea. - Recommendation for admission for pain control. - Patient prefers discharge home with knitting machine operator helper. - Will try morphine IR for discomfort. - Will use urinal and walker for ADLs. - On reassessment, asked for tramadol for discomfort initially, but states it didn't help much. - CBC and CMP do not show evidence of acute abnormality. - No evidence of trauma to kidney on CT scan. - Encouraged to use spirometer, at least 12 full inhalations and exhalations daily to prevent pneumonia. - Use Tylenol for pain. - To be reevaluated by PCP in 3 days. - Return precautions reviewed and patient expressed understanding. Final Assessment: Patient with fall-related injury resulting in transverse process fractures and rib fractures. No pneumothorax, hemothorax, hypoxia, tachypnea, or kidney trauma. Pain management plan includes morphine IR and Tylenol. Discharge home with assistance and follow-up with PCP in 3 days. Encouraged to use spirometer to prevent pneumonia. Clinical Impression: - Fall-related injury - Blurry vision in right eye Disposition: - Discharge home with knitting machine operator helper - Follow-Up: Reevaluation by PCP in 3 days Patient Education: Return precautions reviewed and patient expressed understanding. MDM Components Evaluation: - Number of Differential Diagnoses or Management Options: Fall-related injury, blurry vision in right eye - Amount and Complexity of Data Reviewed: CT chest, abdomen, and pelvis; CBC; CMP - Risk of Complication and Morbidity or Mortality: Risk of pneumonia due to rib fractures, managed with spirometer use and pain control. Quality:SDOH Health Related Social Needs: No Data to Display PFSH All Active Problems (Updated 06/27/24 @ 15:33 by SINCERE Salguero) Multiple fractures of ribs (Acute) Lumbar transverse process fracture (Acute) Positive fecal occult blood test (Acute) Screening for colon cancer (Acute) Medical History (Updated 06/27/24 @ 15:33 by SINCERE Salguero) Hypertension Arthritis Migraine Lactose intolerance Vitiligo Erectile dysfunction Obesity Smoker Bilateral knee pain Caregiver stress Hyperlipidemia Surgical History (Updated 03/05/21 @ 11:06 by Isa Aldridge) Hx of cholecystectomy History of uvulectomy History of tonsillectomy and adenoidectomy pt. reports his palate and uvula were modified for sleep apnea History of carpal tunnel release bilateral Hx of colonoscopy Family History (Updated 03/01/21 @ 15:26 by SINCERE Hawk) Mother Colon cancer Maternal Uncle Colon cancer Social History (Updated 03/01/21 @ 15:22 by SINCERE Hawk) Smoking/Tobacco Use Status: Former Tobacco Use Quit Date: 05/20/20 Smoking risk assessment performed?: Yes Alcohol Intake: current Alcohol Intake frequency: 0-2 drinks per day Alcohol type: wine Drug use: Daily Substance use type: marijuana Details: He consumes 2mL of THC butter nightly for sleep and uses THC salve topically for joint pain. He smokes CBD hemp daily. alcohol: t-2, couple glasses wine. Marijuana tincture for sleep t-2 Do you feel safe at home: Yes Do you feel safe in your relationship?: Yes PAWSS Have you Been Recently Intoxicated or Drunk Within the Last 30 days?: No Have you Ever Experienced Previous Episodes of Alcohol Withdrawal?: No Have you ever Experienced Withdrawal Seizures?: No Have you ever Experienced Delirium Tremens(DT)s?: No Have you ever undergone Alcohol Rehabilitation Treatment (i.e, inpt ot outpatient treatment programs)?: No Have you ever Experienced Blackouts?: No Have you ever Combined Alcohol with other Downers within the last 90 days?: No Have you ever Combined Alcohol with any other Substance of Abuse during the last 90 days?: No Positive Blood Alcohol level on Presentation? [PCS.BAL]: No Evidence of Increased Autonomic Activity (i.e. HR>120, tremor, sweating, agitation, nausea)?: No Result: 0
[2024-06-27 15:56] VITALS: BP 150/96; PULSE 81; RESP 20; TEMP 36.9; O2SAT 97
[2024-06-27] MEDS: MORPHine IR 15 MG TAB, 4 TABS/BTL PO (16:05)
[2024-06-27 16:10] VITALS: BP 150/96; PULSE 81; RESP 20; TEMP 36.5; O2SAT 97
== END 2024-06-27 16:12 | disposition home or self-care (01) ==
PROVIDERS: Emergency Provider Physician Assistant; PCP Internal Medicine
DX: S22.41XA Multiple fractures of ribs, right side, initial encounter for closed fracture (principal); S32.018A Other fracture of first lumbar vertebra, initial encounter for closed fracture; S32.028A Other fracture of second lumbar vertebra, initial encounter for closed fracture; S32.038A Other fracture of third lumbar vertebra, initial encounter for closed fracture; I10 Essential (primary) hypertension; E78.5 Hyperlipidemia, unspecified; W01.198A Fall on same level from slipping, tripping and stumbling with subsequent striking against other object, initial encounter; Y93.89 Activity, other specified; Y92.018 Other place in single-family (private) house as the place of occurrence of the external cause; Z87.891 Personal history of nicotine dependence
CPT/HCPCS: 74177; 80053; 83690; 99285; 71260; 85025; 99284; J3490

== ENCOUNTER 2024-11-11 08:39 | Outpatient (REF) | payer MEDICARE, SELFPAY ==
[2024-11-11 16:04] LABS: Anion Gap 7.9 mmol/L (3-11); BUN 14 mg/dL (7-18); CO2 30.1 mmol/L (21.0-32.0); Calcium 8.9 mg/dL (8.5-10.1); Chloride 104 mmol/L (98-107); Estimated GFR 97.90 (mL/min/1.73m2); Glucose 117 mg/dL (74-106); Potassium 4.7 mmol/L (3.5-5.1); Sodium 142 mmol/L (136-145)
== END 2024-11-11 08:40 | disposition home or self-care (01) ==
LOC: NCHCN 08:39
PROVIDERS: PCP Internal Medicine; Visit Provider Internal Medicine
DX: I10 Essential (primary) hypertension (principal)
CPT/HCPCS: 80048